=== PATIENT | male | born 1990 | race Caucasian/White ===

== ENCOUNTER 2017-05-11 23:58 | Emergency (ER) | payer MEDICAID ==
[~2017-05-11] VITALS: Ht 175.3 cm; Wt 34.0 kg
[2017-05-11 23:59] VITALS: BP_SYST 118
[2017-05-12 01:21] VITALS: BP_SYST 120
== END 2017-05-12 01:21 | disposition home or self-care (01) ==
LOC: SED 23:58
DX: R10.84 Generalized abdominal pain (principal); J45.909 Unspecified asthma, uncomplicated; J44.9 Chronic obstructive pulmonary disease, unspecified; Z96.698 Presence of other orthopedic joint implants
CPT/HCPCS: 99283

== ENCOUNTER 2017-11-19 10:08 | Emergency (ER) | payer MEDICAID ==
[~2017-11-19] VITALS: Ht 180.3 cm; Wt 33.6 kg
[2017-11-19 10:49] VITALS: BP_SYST 136
[2017-11-19] MEDS ORDERED: NACL 0.9% 1,000 ML IV ONE (11:12)
[2017-11-19 11:33] LABS: BASOPHILS # (AUTO) 0.1 K/uL (0.0-0.2); BASOPHILS % (AUTO) 0.9 % (0.0-2.0); HEMATOCRIT 42.9 % (36-54); HEMOGLOBIN 14.5 g/dL (14.0-18.0); LYMPHOCYTES # (AUTO) 0.4 K/uL (1.0-5.5); LYMPHOCYTES % (AUTO) 4.4 % (20.5-51.5); MEAN CORPUSCULAR HEMOGLOBIN 31 pg (27-31); MEAN CORPUSCULAR HGB CONC 34 % (32-36); MEAN CORPUSCULAR VOLUME 91 fL (79.0-98.0); MONOCYTES # (AUTO) 0.2 K/uL (0.0-1.0); MONOCYTES % (AUTO) 1.9 % (1.7-9.3); NEUTROPHILS # (AUTO) 8.6 K/uL (1.8-7.7); NEUTROPHILS % (AUTO) 92.8 % (40.0-70.0); PLATELET COUNT (AUTO) 131 K/uL (130-430); RED BLOOD CELL COUNT(AUTO) 4.69 MIL/uL (4.2-6.2); RED CELL DISTRIBUTION WIDTH 13.1 % (9.0-15.0); WHITE BLOOD COUNT (AUTO) 9.3 K/uL (4.8-10.8)
[2017-11-19 11:40] LABS: BILIRUBIN,URINE 1+ (NEGATIVE); BLOOD, URINE 1+ (NEGATIVE); COLOR,URINE ORANGE (YELLOW); GLUCOSE,URINE NEGATIVE (NEGATIVE); KETONES,URINE 3+ (NEGATIVE); LEUKOCYTE ESTERASE ,URINE NEGATIVE (NEGATIVE); NITRITE, URINE NEGATIVE (NEGATIVE); PH,URINE 5.5 (5.0-8.0); PROTEIN URINE TRACE (NEGATIVE)
[2017-11-19 11:48] LABS: CALCIUM 9.1 mg/dL (8.4-11.0); POTASSIUM 3.7 mmol/L (3.5-5.1)
[2017-11-19 11:49] LABS: CLARITY/URINE SLIGHTLY HAZY (CLEAR)
[2017-11-19 11:55] LABS: ALBUMIN 3.6 g/dL (3.4-4.8); TOTAL BILIRUBIN 1.5 mg/dL (0.0-1.0)
[2017-11-19 12:12] LABS: BACTERIA,URINE FEW /HPF (None Seen); RBC,URINE 0-3 /HPF (0-3); WBC,URINE 0-3 /HPF (0-3)
[2017-11-19 12:16] LABS: CREATININE 0.2 mg/dL (0.55-1.30)
[2017-11-19] MEDS ORDERED: ACETAMINOPHEN 650 MG SUPP.RECT RC ONE (14:15)
[2017-11-19] MEDS ORDERED: SIMETHICONE 80 MG TAB.CHEW PO ONE (15:15)
[2017-11-19 15:47] VITALS: BP_SYST 119
== END 2017-11-19 15:47 | disposition home or self-care (01) ==
LOC: SED 10:08
DX: K56.7 Ileus, unspecified (principal); J44.9 Chronic obstructive pulmonary disease, unspecified
CPT/HCPCS: 36415; 71045; 74018; 76700; 80053; 81000; 83605; 83690; 85025; 87040; 93005; 96360; 96361; 99285; J7030